=== PATIENT | female | born 1995 | race Caucasian/White ===

== ENCOUNTER → 2016-10-02 | Outpatient (REF) | payer SELFPAY | LOC: M LAB REF 16:30 | PROVIDERS: ATTEND Physician Assistant | DX: J02.9 Acute pharyngitis, unspecified (principal) ==

== ENCOUNTER → 2017-01-25 | Outpatient (REF) | payer OTHER | LOC: M LAB REF 13:20 | PROVIDERS: ATTEND Physician Assistant | DX: N39.0 Urinary tract infection, site not specified (principal) ==